=== PATIENT | female | born 1955 | race Caucasian/White ===

== ENCOUNTER 2016-09-06 16:24 | Inpatient (IN) | payer OTHER, MEDICAID ==
[~2016-09-06] VITALS: Ht 157.5 cm; Wt 54.4 kg
[2016-09-06 16:31] VITALS: BP 100/49
--- NOTE | 2016-09-06 16:35 | NUR ---
PT BIBA FOR EVALUATION OF ABDOMINAL PAIN X2 YRS. HX GALLSTONES, RA, BIPOLAR DISORDER. DENIES N/V/D; SKIN IS PINK/WARM/DRY; AAOX4 WITH EVEN AND STEADY GAIT; LUNGS CLEAR BL; HR EVEN AND REGULAR; PT DENIES ANY FEVER, CP, SOB, OR COUGH AT THIS TIME; PATIENT STATES PAIN OF 10/10 AT THIS TIME; VSS; PATIENT POSITIONED FOR COMFORT; HOB ELEVATED; BEDRAILS UP X2; BED DOWN. ER MD MADE AWARE OF PT STATUS.
[2016-09-06] MEDS ORDERED: KETOROLAC 30 MG/ML VIAL IVP ONE (16:40)
[2016-09-06] MEDS ORDERED: MORPHINE SULFATE 4 MG/ML SYR IVP ONE (18:40)
--- NOTE | 2016-09-06 19:11 | NUR ---
REPORT GIVEN TO JUAN ALBERTO MCNEAL FOR TRANSFER OF CARE
[2016-09-06] MEDS ORDERED: NACL 0.9% 1,000 ML IV SCH (20:47)
[2016-09-06] MEDS ORDERED: clonazePAM 0.5 MG TAB PO ONE (20:50)
[2016-09-06] MEDS ORDERED: ONDANSETRON 4 MG/2 ML VIAL IVP ONE (20:50)
[2016-09-06] MEDS ORDERED: FAMOTIDINE 20 MG/2 ML VIAL IVP ONE (20:50)
[2016-09-06] MEDS ORDERED: DOCUSATE SODIUM 100 MG GELCAP PO PRN (20:55)
[2016-09-06] MEDS ORDERED: ONDANSETRON 4 MG/2 ML VIAL IVP PRN (20:55)
[2016-09-06] MEDS ORDERED: NACL 0.9% 1,000 ML IV ONE (20:55)
[2016-09-06] MEDS ORDERED: ACETAMINOPHEN 325 MG TAB PO PRN (20:55)
[2016-09-06] MEDS ORDERED: HYDROmorphone 1 MG/ML AMP IVP PRN (21:00)
--- NOTE | 2016-09-06 21:11 | NUR ---
Patient will be admitted to care of DR. GRIFFITHS. Admited to TELE. Will go to room 120B. Belongings list completed. Report to FABIAN AVENDANO.
[2016-09-06] MEDS ORDERED: NEURONTIN300 MG PO (21:12)
[2016-09-06] MEDS ORDERED: PAXIL20 MG PO (21:13)
[2016-09-06] MEDS ORDERED: PROTONIX40 MG PO (21:14)
[2016-09-06] MEDS ORDERED: TEMAZEPAM15 MG PO (21:16)
[2016-09-06] MEDS ORDERED: COLACE100 M1 PO (21:17)
[2016-09-06] MEDS ORDERED: RISPERDAL0.25 MG PO (21:19)
[2016-09-06] MEDS ORDERED: DELTASONE10 MG PO (21:20)
[2016-09-06] MEDS ORDERED: BENTYL10 MG PO (21:22)
[2016-09-06 21:30] VITALS: BP 114/49
--- NOTE | 2016-09-06 21:30 | NUR ---
PATIENT TRANSFERRED FROM ER VIA GURNEY. PATIENT ABLE TO AMBULATE TO BED WITH ASSISTANCE, WEAK GAIT. NO RESPIRATORY DISTRESS, SOB, OR DISCOMFORT. PATIENT IS A 60-YEAR-OLD, FEMALE, DIAGNOSIS: ACUTE CHOLECYSTITIS. INITIAL ASSESSMENT AND BODY CHECK DONE. PATIENT IS AOX4, SKIN IS INTACT, IV ACCESS TO LEFT HAND 22G, PATENT. ABDOMINAL HERNIA NOTED. DISCUSSED PLAN OF CARE, MEDICATION REGIMENT, AND PAIN MANAGEMENT WITH PATIENT. PATIENT VERBALIZED UNDERSTANDING. PLACED PATIENT ON SAFETY PRECAUTIONS. CALL LIGHT LEFT WITHIN REACH, WILL CONTINUE TO MONITOR.
--- NOTE | 2016-09-06 21:32 | NUR ---
Pt report given to FABIAN AVENDANO. Transfer of care at this time.
[2016-09-06] MEDS ORDERED: INFLUENZA VIRUS VACCINE QUAD 0.5 ML SYR IMVAC PRN (23:40)
[2016-09-06] MEDS ORDERED: PNEUMOCOCCAL VACCINE 23 MCG/0.5 ML VIAL IMVAC PRN (23:40)
[2016-09-07] VITALS: BP 96/43
--- NOTE | 2016-09-07 00:46 | NUR ---
PATIENT IN BED, SLEEPING. NO RESPIRATORY DISTRESS, SOB, OR DISCOMFORT. CALL LIGHT LEFT WITHIN REACH, WILL CONTINUE TO MONITOR.
--- NOTE | 2016-09-07 03:14 | NUR ---
PATIENT ASLEEP. NO RESPIRATORY DISTRESS, SOB, OR DISCOMFORT. CALL LIGHT LEFT WITHIN REACH, WILL CONTINUE TO MONITOR.
[2016-09-07 04:00] VITALS: BP 87/44
--- NOTE | 2016-09-07 06:03 | NUR ---
PATIENT SLEEPING. NO RESPIRATORY DISTRESS, SOB, OR DISCOMFORT. CALL LIGHT LEFT WITHIN REACH, WILL CONTINUE TO MONITOR.
--- NOTE | 2016-09-07 07:31 | NUR ---
REPORT GIVEN TO DAY NURSE, ANNA, FOR CONTINUITY OF CARE. PATIENT RESTING IN BED, STABLE. NO RESPIRATORY DISTRESS, SOB, OR DISCOMFORT. ALL NEEDS ATTENDED TO DURING SHIFT, CALL LIGHT LEFT WITHIN REACH.
[2016-09-07 08:00] VITALS: BP 100/48
--- NOTE | 2016-09-07 08:00 | NUR ---
RECEIVED REPORT FROM ANNA AVENDANO FOR CONTINUITY OF CARE. PATIENT AWAKE A/OX4 NO S/SOF RESP DISTRESS NOTED. COMPLAIN OF BACK PAIN WILL MEDICATE. GENERALIZE WEAKNESS NOTED BILATERAL HANDS DEFORMED. SAFETY ROBERT BEEN ENFORCED. IV SITE RIGHT HAND GAUGE 22 INTACT AND PATENT . IVF INFUSING WELL. PLAN OF CARE DISCUSSED WITH THE PATIENT VITALS STABLE WILL CONTINUE TO MONITOR.
--- NOTE | 2016-09-07 08:14 | NUR ---
PATIENT HAS BEEN SCREENED AND CATEGORIZED MODERATE NUTRITION RISK. PATIENT WILL BE SEEN WITHIN 3-5 DAYS OF ADMISSION. 09/09/16-09/11/[address]
[2016-09-07] MEDS ORDERED: PANTOPRAZOLE 40 MG TABEC PO SCH (09:00)
[2016-09-07] MEDS ORDERED: DICYCLOMINE 10 MG CAP PO SCH (09:00)
[2016-09-07] MEDS ORDERED: risperiDONE 1 MG TAB PO SCH (09:00)
--- NOTE | 2016-09-07 09:30 | NUR ---
DUE MEDS GIVEN TOLERATED WELL, COMPLAIN OF BACK PAIN MEDICATED WITH NORCO ONE TAB. ASSIST PATIENT TO BATHROOM MORNING CARE GIVEN.
[2016-09-07] MEDS: GABAPENTIN 300 MG CAP PO SCH (09:59)
[2016-09-07] MEDS: predniSONE 10 MG TAB PO SCH (09:59)
[2016-09-07] MEDS: PANTOPRAZOLE 40 MG TABEC PO SCH (10:00)
[2016-09-07] MEDS: HYDROcodone/APAP 5/325 MG 1 TAB TAB PO PRN (10:01)
[2016-09-07] MEDS: PARoxetine 20 MG TAB PO SCH (10:01)
[2016-09-07] MEDS ORDERED: MORPHINE SULFATE 4 MG/ML SYR IVP PRN (11:10)
[2016-09-07] MEDS: NACL 0.9% 1,000 ML IV SCH (11:10)
[2016-09-07 12:00] VITALS: BP 107/58
--- NOTE | 2016-09-07 12:20 | NUR ---
CM NOTE INITIAL REVIEW SENT TO [employer] FAX# [phone] PH# TREVOR [phone], CHERELLE [phone]
--- NOTE | 2016-09-07 12:24 | NUR ---
RELAXED EATING LUNCH , DENIES ANY PAIN VITALS STABLE AT THIS TIME.
--- NOTE | 2016-09-07 13:00 | NUR ---
DR BHATIA VISITED PATIENT , NEW ORDER HIDA SCAN TO BE DONE STAT. ORDER CARRIED OUT
[2016-09-07 16:00] VITALS: BP 106/56
--- NOTE | 2016-09-07 16:30 | NUR ---
RESTING WELL DENIES ANY PAIN VITALS STABLE AT THIS TIME.
--- NOTE | 2016-09-07 18:07 | NUR ---
PATIENT LEFT FOR HIDA SCAN , STABLE CONDITION
--- NOTE | 2016-09-07 19:26 | NUR ---
RECD. RESTING IN BED, AWAKE, A/OX4, WITH OCCASIONAL FORGETFULNESS. IV OF NS AT 75 ML/HR INFUSING, RIGHT WRIST G 22. WITH ARTHRITIS ON BOTH HANDS, FINGERS DEFORMED. USES THE BEDSIDE COMMODE. SAFETY MEASURES ENFORCED. PLAN OF CARE FOR THE SHIFT DISCUSSED. VERBALIZED UNDERSTANDING. DENIES PAIN 0/10.
[2016-09-07 20:00] VITALS: BP 92/54
[2016-09-07] MEDS: DOCUSATE SODIUM 100 MG GELCAP PO SCH (20:53)
[2016-09-07] MEDS: risperiDONE 1 MG TAB PO SCH (20:53)
[2016-09-07] MEDS: TEMAZEPAM 15 MG CAP PO SCH (20:53)
[2016-09-07] MEDS ORDERED: DOCUSATE SODIUM 100 MG GELCAP PO SCH (21:00)
--- NOTE | 2016-09-07 21:00 | NUR ---
Patient's Plan of Care was discussed and reviewed with CIVIL LAWYER: RICHMOND ESCALONA
[2016-09-07] MEDS ORDERED: clonazePAM 0.5 MG TAB PO SCH (21:45)
[2016-09-07] MEDS ORDERED: DICYCLOMINE 20 MG/2 ML VIAL IM SCH (21:45)
--- NOTE | 2016-09-07 22:00 | NUR ---
INFORMED DR. BHATIA REGARDING RESULT OF HIDA SCAN. NO EVIDENCE OF CYSTIC OR COMMON BILE DUCT OBSTRUCTION. PATIENT MAY GO HOME TOMORROW AND FOLLOW UP WITH PRIMARY CARE PHYSICIAN. CHARGE NURSE AWARE.
[2016-09-08] VITALS: BP 89/53
[2016-09-08] MEDS: NACL 0.9% 1,000 ML IV SCH ×3 (00:30→14:24)
[2016-09-08] MEDS ORDERED: NACL 0.9% 500 ML IV ONE (01:40)
--- NOTE | 2016-09-08 01:40 | NUR ---
BP - 83/37, RIGHT ARM, 80/40, LEFT ARM, ADMINISTERED NS 500 ML BOLUS ORDERED.
--- NOTE | 2016-09-08 02:15 | NUR ---
BED ALARMED, WENT OUT OF BED WITHOUT CALLING NURSE FOR HELP.INSTRUCTED TO CALL NURSE`FOR ASSISTANCE BEFORE GETTING OUT OF BED TO PREVENT FALL. VERBALIZED UNDERSTANDING.
--- NOTE | 2016-09-08 03:45 | NUR ---
IV INFILTRATED, NEW IV LINE INSERTED BY RESOURCE NURSE JERAD AT THE RIGHT WRIST G 24.
--- NOTE | 2016-09-08 03:55 | NUR ---
BP - 115/44, HR - 50, RESTING COMFORTABLY IN BED.
[2016-09-08 04:00] VITALS: BP 115/44
--- NOTE | 2016-09-08 04:00 | NUR ---
WENT TO BSC TO VOID, BACK TO BED AFTER VOIDING SAFETY MAINTAINED.
--- NOTE | 2016-09-08 07:15 | NUR ---
CONDITION REMAIN STABLE. ENDORSED TO JUAN ALBERTO ORTEGA FOR MONITORING OF BP AND CONTINUITY OF CARE.
--- NOTE | 2016-09-08 07:16 | NUR ---
RECEIVED PT FROM MOR FRAGOSO ASLEEP BUT EASILY AROUSABLE, ON BED, AAOX4, WITH NO S/S OF RESPIRATORY DISTRESS OR DISCOMFORT. WITH IV ACCESS ON LEFT WRIST 24G INFUSING FLUIDS WELL. SKIN IS INTACT. DISCUSSED PLAN OF CARE, PT VERBALIZED UNDERSTANDING. SAFETY PRECAUTIONS ENFORCED. WITH COMMODE AT BEDISED AND BED ALARM ON. CALL LIGHT WITHIN REACH, WILL CONTINUE TO MONITOR.
[2016-09-08 08:00] VITALS: BP 113/65
[2016-09-08] MEDS: DOCUSATE SODIUM 100 MG GELCAP PO SCH ×2 (08:33→21:34)
[2016-09-08] MEDS: GABAPENTIN 300 MG CAP PO SCH (08:34)
[2016-09-08] MEDS: PARoxetine 20 MG TAB PO SCH (08:34)
[2016-09-08] MEDS: predniSONE 10 MG TAB PO SCH (08:34)
[2016-09-08] MEDS: PANTOPRAZOLE 40 MG TABEC PO SCH (08:34)
[2016-09-08] MEDS: DICYCLOMINE 10 MG CAP PO SCH ×2 (08:34→21:35)
--- NOTE | 2016-09-08 08:36 | NUR ---
DUE MEDS GIVEN, PT TOLERATED WELL. KEPT CLEAN AND DRY, WILL CONTINUE TO MONITOR.
--- NOTE | 2016-09-08 10:28 | NUR ---
PT IN BED AWAKE RESTING. KEPT CLEAN AND DRY. INFECTION MRSA HANDOUT GIVEN. ALL NEEDS MET AT THIS TIME. WILL CONTINUE TO MONITOR.
[2016-09-08] MEDS: CHLORHEXADINE GLUC 2% CLOTH TP SCH (10:36)
[2016-09-08] MEDS: MUPIROCIN 2% OINT 22 GM TUBE TP SCH (10:36)
--- NOTE | 2016-09-08 12:28 | NUR ---
PT LYING ON BED TALKING TO HER PHONE. KEPT CLEAN AND DRY. AL NEEDS MET AT THIS TIME. CALL LIGHT WITHIN REACH, WILL CONTINUE TO MONITOR.
--- NOTE | 2016-09-08 14:03 | NUR ---
CM NOTE CONCURRENT REVIEW SENT TO [employer] FAX# [phone] PH# CHERELLE [phone], THO MURRAY [phone]
[2016-09-08] MEDS: HYDROcodone/APAP 5/325 MG 1 TAB TAB PO PRN (15:01)
--- NOTE | 2016-09-08 15:09 | NUR ---
PT AWAKE AND LYING ON BED WITH RELATIVES AT BEDSIDE. ALL NEEDS MET AT THIS TIME. CALL LIGHT WITHIN REACH, WILL CONTINUE TO MONITOR.
[2016-09-08 15:27] VITALS: BP 107/53
[2016-09-08] MEDS: CALCIUM CARBONATE 500 MG TAB PO SCH (16:15)
--- NOTE | 2016-09-08 16:48 | NUR ---
DINNER SERVED, PT ON FULL LIQUID DIET. INFORMED PT TO BE ON NPO AFTER MIDNIGHT. PT VERBALIZED UNDERSTANDING.
--- NOTE | 2016-09-08 19:38 | NUR ---
ENDORSED PT TO MOR FRAGOSO IN STABLE CONDITION FOR CONTINUITY OF CARE
--- NOTE | 2016-09-08 19:39 | NUR ---
RECD. RESTING IN BED, AWAKE, A/OX4. RESPIRATION EVEN AND UNLABORED. IV OF NS AT 90 ML/HR INFUSING, LEFT WRIST G 24. USES BSC. SAFETY MEASURES ENFORCED. PLAN OF CARE FOR THE SHIFT DISCUSSED. INSTRUCTED TO CALL NURSE BEFORE GETTING OUT OF BED FOR ASSISTANCE. VERBALIZED UNDERSTANDING. STATED WANTS TO HAVE SURGERY TO PREVENT EXPERIENCES OF PAIN AT HOME. AWAITING FOR DR. DUPONT TO COME. DENIES PAIN AT THIS TIME 0.
--- NOTE | 2016-09-08 20:00 | NUR ---
Patient's Plan of Care was discussed and reviewed with MANAGER MEDICARE: RICHMOND ESCALONA
--- NOTE | 2016-09-08 20:25 | NUR ---
DR. DUPONT CAME AND SPOKE WITH PATIENT. ORDERED LAPAROSCOPIC POSSIBLE OPEN CHOLECYSTECTOMY.
[2016-09-08] MEDS: TEMAZEPAM 15 MG CAP PO SCH (21:35)
[2016-09-08] MEDS: risperiDONE 1 MG TAB PO SCH (21:35)
--- NOTE | 2016-09-08 21:35 | NUR ---
DUE PO MEDICATIONS GIVEN.
[2016-09-08 23:27] VITALS: BP 110/59
--- NOTE | 2016-09-09 | NUR ---
OUT OF BED WITHOUT CALLING NURSE TO GO TO BSC. INSTRUCTED TO ALWAYS CALL FOR ASSISTANCE. VERBALIZED UNDERSTANDING. REMINDED NPO PAST MIDNIGHT FOR SURGERY TODAY.
[2016-09-09] MEDS: NACL 0.9% 1,000 ML IV SCH ×4 (00:36→22:50)
--- NOTE | 2016-09-09 04:00 | NUR ---
ASSISTED BELLA BSC TO VOID, SAFETY MAINTAINED.
--- NOTE | 2016-09-09 07:20 | NUR ---
CONDITION REMAIN STABLE. ENDORSED TO JUAN ALBERTO FERNÁNDEZ FOR CONTINUITY OF CARE.
[2016-09-09] MEDS ORDERED: BUPIVACAINE-MPF 0.25% 30 ML VIAL INJ ONE (07:21)
--- NOTE | 2016-09-09 07:21 | NUR ---
RECEIVED REPORT FROM NIGHT DELICATESSEN SLICER. PT RESTING IN BED. NO S/S OF ACUTE DISTRESS. AAOX4. PT DENIES PAIN. IV SITE PATENT AND INTACT. CALL LIGHT WITHIN REACH. SAFETY MEASURES ENSURED. WILL CONTINUE TO MONITOR.
--- NOTE | 2016-09-09 07:41 | NUR ---
PT TAKEN OFF UNIT TO OR. NO S/S OF ACUTE DISTRESS. PT DENIES PAIN. PT REMAINS IN STABLE CONDITION.
[2016-09-09] MEDS ORDERED: ceFAZolin 1,000 MG VIAL ONE (07:58)
[2016-09-09] MEDS ORDERED: PROPOFOL 200 MG/20 ML VIAL IV ONE (08:00)
[2016-09-09] MEDS ORDERED: ONDANSETRON 4 MG/2 ML VIAL IVP ONE (08:00)
[2016-09-09] MEDS ORDERED: SUCCINYLCHOLINE CHLORIDE 200 MG/10 ML VIAL IV ONE (08:00)
[2016-09-09] MEDS ORDERED: PHENYLEPHRINE 10 MG/ML VIAL IV ONE (08:00)
[2016-09-09] MEDS: PANTOPRAZOLE 40 MG TABEC PO SCH (08:00)
[2016-09-09] MEDS ORDERED: GLYCOPYRROLATE 0.2 MG/ML VIAL IV ONE (08:00)
[2016-09-09] MEDS ORDERED: DESFLURANE 240 ML BTL INH ONE (08:00)
[2016-09-09] MEDS ORDERED: ROCURONIUM 50 MG/5 ML VIAL IV ONE (08:00)
[2016-09-09] MEDS: CALCIUM CARBONATE 500 MG TAB PO SCH ×2 (08:00→16:58)
[2016-09-09] MEDS ORDERED: DEXAMETHASONE 4 MG/ML VIAL IVP ONE (08:00)
[2016-09-09] MEDS: DICYCLOMINE 10 MG CAP PO SCH ×2 (08:12→21:33)
[2016-09-09] MEDS: DOCUSATE SODIUM 100 MG GELCAP PO SCH ×2 (08:12→21:32)
[2016-09-09] MEDS ORDERED: MIDAZOLAM 2 MG/2 ML VIAL ONE (08:13)
[2016-09-09] MEDS ORDERED: fentaNYL 0.05 MG/ML VIAL ONE (08:13)
[2016-09-09] MEDS: GABAPENTIN 300 MG CAP PO SCH (08:13)
[2016-09-09] MEDS: predniSONE 10 MG TAB PO SCH (08:13)
[2016-09-09] MEDS ORDERED: MEPERIDINE 50 MG/ML SYR ONE (08:13)
[2016-09-09] MEDS: PARoxetine 20 MG TAB PO SCH (08:13)
[2016-09-09] MEDS ORDERED: METOCLOPRAMIDE 10 MG/2 ML INJ VIAL IVP PRN (09:15)
[2016-09-09] MEDS ORDERED: MEPERIDINE 25 MG/ML SYR IVP PRN ×2 (09:15)
[2016-09-09] MEDS ORDERED: MIDAZOLAM 2 MG/2 ML VIAL IVP SCH (09:15)
--- NOTE | 2016-09-09 09:38 | NUR ---
CM NOTE CONCURRENT REVIEW SENT TO [employer] FAX# [phone] PH# CHERELLE [phone], THO MURRAY [phone]
[2016-09-09] MEDS: MUPIROCIN 2% OINT 22 GM TUBE TP SCH (10:00)
[2016-09-09] MEDS: CHLORHEXADINE GLUC 2% CLOTH TP SCH (10:00)
[2016-09-09] MEDS ORDERED: MUPIROCIN 2% OINT 22 GM TUBE TP SCH (10:00)
[2016-09-09 10:52] VITALS: BP 117/55
--- NOTE | 2016-09-09 10:52 | NUR ---
PT BACK ON UNIT. NO S/S OF ACUTE DISTRESS. PT DROWSY. PT DENIES PAIN. IV SITE PATENT AND INTACT. VSS. CALL LIGHT WITHIN REACH. SAFETY MEASURES ENSURED. WILL CONTINUE TO MONITOR.
[2016-09-09] MEDS: PIPER/TAZO 3.375GM/D5W PREMIX 50 ML IV SCH ×2 (12:58→16:59)
--- NOTE | 2016-09-09 13:33 | NUR ---
PT RESTING IN BED. NO S/S OF ACUTE DISTRESS. 5 STERI STRIPS NOTED TO ABDOMEN. PT DENIES PAIN. CALL LIGHT WITHIN REACH. SAFETY MEASURES ENSURED. WILL CONTINUE TO MONITOR.
[2016-09-09] MEDS: metroNIDAZOLE 500 MG/NS PREMIX 100 ML IV SCH ×2 (13:41→21:33)
[2016-09-09] MEDS: HYDROcodone/APAP 5/325 MG 1 TAB TAB PO PRN (14:07)
--- NOTE | 2016-09-09 15:26 | NUR ---
PT RESTING IN BED. NO S/S OF ACUTE DISTRESS. PT DENIES PAIN. CALL LIGHT WITHIN REACH. SAFETY MEASURES ENSURED. WILL CONTINUE TO MONITOR.
[2016-09-09 16:00] VITALS: BP 119/60
--- NOTE | 2016-09-09 16:07 | NUR ---
PT RESTING IN BED. NO S/S OF ACUTE DISTRESS. CALL LIGHT WITHIN REACH. SAFETY MEASURES ENSURED. WILL CONTINUE TO MONITOR.
[2016-09-09] MEDS ORDERED: HYDROmorphone 1 MG/ML AMP IVP PRN (16:25)
--- NOTE | 2016-09-09 16:45 | NUR ---
NOTIFIED DR. HEAD ABOUT PT'S PAIN COMING BACK DESPITE NORCO 5. STATED TO GIVE NORCO 10 NOW.
[2016-09-09] MEDS: HYDROcodone/APAP 10/325 MG 1 TAB TAB PO PRN (16:58)
--- NOTE | 2016-09-09 19:28 | NUR ---
ENDORSED PLAN OF CARE TO NIGHT RN. PT REMAINS IN STABLE CONDITION.
--- NOTE | 2016-09-09 19:35 | NUR ---
RECEIVED REPORT FROM DAY NURSEJOLENE. PATIENT RESTING IN BED, WATCHING TELEVISION. NO RESPIRATORY DISTRESS, SOB, OR DISCOMFORT. INITIAL ASSESSMENT AND BODY CHECK DONE. PATIENT IS AOX4, IV ACCESS TO LEFT WRIST 24G AND RIGHT UPPER ARM 22G, BOTH PORTS PATENT. PATIENT HAS 5 ABD INCISIONS STERI STRIPS IN PLACE; NO DRAINAGE NOTED. S/P LAP GEGE (09/09/16). PATIENT DENIES ANY PAIN AT THIS TIME. DISCUSSED PLAN OF CARE, MEDICATION REGIMENT, AND PAIN MANAGEMENT WITH PATIENT. PATIENT VERBALIZED UNDERSTANDING. PLACED PATIENT ON SAFETY/FALL PRECAUTIONS. CALL LIGHT LEFT WITHIN REACH, WILL CONTINUE TO MONITOR.
[2016-09-09] MEDS: risperiDONE 1 MG TAB PO SCH (21:33)
[2016-09-09] MEDS: TEMAZEPAM 15 MG CAP PO SCH (21:33)
--- NOTE | 2016-09-09 21:56 | NUR ---
PATIENT REQUESTING ADDITIONAL BLANKET. PROVIDE TO PATIENT. PATIENT RESTING IN BED. NO RESPIRATORY DISTRESS, SOB, OR DISCOMFORT. CALL LIGHT LEFT WITHIN REACH, WILL CONTINUE TO MONITOR.
[2016-09-10] VITALS: BP 101/60
[2016-09-10] MEDS: PIPER/TAZO 3.375GM/D5W PREMIX 50 ML IV SCH ×4 (00:23→17:02)
--- NOTE | 2016-09-10 00:50 | NUR ---
PATIENT IN BED, SLEEPING. NO RESPIRATORY DISTRESS, SOB, OR DISCOMFORT. CALL LIGHT LEFT WITHIN REACH, WILL CONTINUE TO MONITOR.
[2016-09-10] MEDS: HYDROcodone/APAP 10/325 MG 1 TAB TAB PO PRN ×3 (02:39→17:02)
--- NOTE | 2016-09-10 03:06 | NUR ---
PATIENT ASLEEP. NO RESPIRATORY DISTRESS, SOB, OR DISCOMFORT. CALL LIGHT LEFT WITHIN REACH, WILL CONTINUE TO MONITOR.
[2016-09-10] MEDS: metroNIDAZOLE 500 MG/NS PREMIX 100 ML IV SCH ×3 (05:30→21:11)
--- NOTE | 2016-09-10 06:04 | NUR ---
PATIENT SLEEPING. NO RESPIRATORY DISTRESS, SOB, OR DISCOMFORT. CALL LIGHT LEFT WITHIN REACH, WILL CONTINUE TO MONITOR.
--- NOTE | 2016-09-10 07:26 | NUR ---
REPORT GIVEN TO DAY NURSE, DARIO. PATIENT RESTING IN BED, STABLE. NO RESPIRATORY DISTRESS, SOB, OR DISCOMFORT. ALL NEEDS ATTENDED TO DURING SHIFT, CALL LIGHT LEFT WITHIN REACH.
--- NOTE | 2016-09-10 07:27 | NUR ---
PT ALERT AND ORIENTED X3, BREATHING EVENLY AND UNLABORED, NO SIGNS OF ACUTE DISTRESS. SKIN IS WARM AND DRY. NO SIGNS OF ANY BOWEL/BLADDER DISCOMFORT. DENIES OF ANY PAIN OR DISCOMFORT AT THIS TIME. S/P LAP GEGE, DRESSING INTACT AND DRY ON ABDOMINAL AREA. ALL NEEDS ATTENDED, SAFETY PRECAUTIONS MAINTAINED. CALL LIGHT WITHIN REACH.
[2016-09-10 08:00] VITALS: BP 93/42
[2016-09-10] MEDS: CALCIUM CARBONATE 500 MG TAB PO SCH ×3 (08:00→16:04)
[2016-09-10] MEDS: predniSONE 10 MG TAB PO SCH (08:47)
[2016-09-10] MEDS: GABAPENTIN 300 MG CAP PO SCH (08:47)
[2016-09-10] MEDS: DOCUSATE SODIUM 100 MG GELCAP PO SCH ×2 (08:47→21:10)
[2016-09-10] MEDS: PANTOPRAZOLE 40 MG TABEC PO SCH (08:48)
[2016-09-10] MEDS: PARoxetine 20 MG TAB PO SCH (08:48)
[2016-09-10] MEDS: DICYCLOMINE 10 MG CAP PO SCH ×2 (08:48→21:11)
[2016-09-10] MEDS: MUPIROCIN 2% OINT 22 GM TUBE TP SCH (09:39)
[2016-09-10] MEDS: CHLORHEXADINE GLUC 2% CLOTH TP SCH (09:39)
[2016-09-10] MEDS ORDERED: HYDROmorphone PFS 2 MG/ML SYR ONE (09:52)
[2016-09-10] MEDS ORDERED: fentaNYL 0.05 MG/ML VIAL ONE (09:52)
[2016-09-10] MEDS: NACL 0.9% 1,000 ML IV SCH ×2 (09:57→21:12)
--- NOTE | 2016-09-10 14:10 | NUR ---
NEW MED AND LAB ORDERS RECEIVED FROM DR. REDMAN, NOTED AND CARRIED OUT.
[2016-09-10] MEDS ORDERED: POTASSIUM CHLORIDE 40 MEQ, LIDOCAINE 1% 25 MG, MAGNESIUM SULFATE 50% 2,000 MG in NACL 0... IV ONE (15:40)
[2016-09-10 16:00] VITALS: BP 105/48
--- NOTE | 2016-09-10 19:21 | NUR ---
PT ALERT AND RESPONSIVE, NO SIGNS OF ACUTE DISTRESS. ENDORSED TO ONCOMING LIFE GUARD NURSE FOR CONTINUITY OF CARE.
--- NOTE | 2016-09-10 19:30 | NUR ---
RECEIVED REPORT FROM DAY RN AT BEDSIDE, PATIENT IS ALERT AND ORIENTED X4, ON ROOM AIR, NO SOB OR SIGN OF DISTRESS AT THIS TIME. ON CONTACT PRECAUTIONS, SIGNS POSTED, IV TO LFA PATENT AND INTACT, ASYMPTOMATIC. PATIENT IS S/P LAP GEGE ON 09/09/16 WITH X 5 ABDOMINAL INCISIONS NOTED, DENIES PAIN AT THIS TIME, SAFETY MEASURES CHECKED, DISCUSSED PLAN OF CARE WITH PATIENT, PATIENT VERBALIZED UNDERSTANDING, CALL LIGHT WITHIN REACH. WILL CONTINUE TO MONITOR.
[2016-09-10] MEDS: TEMAZEPAM 15 MG CAP PO SCH (21:10)
[2016-09-10] MEDS: risperiDONE 1 MG TAB PO SCH (21:11)
--- NOTE | 2016-09-10 21:15 | NUR ---
PM MEDS ADMINISTERED, PATIENT TOLERATED WELL, ASSISTED PATIENT UP TO RESTROOM, CALL LIGHT WITHIN REACH. WILL CONTINUE TO MONITOR
--- NOTE | 2016-09-10 22:50 | NUR ---
ASSISTED PATIENT TO BEDSIDE COMMODE NO SIGN OF DISTRESS, CALL LIGHT WITHIN REACH. WILL CONTINUE TO MONITOR.
--- NOTE | 2016-09-10 23:05 | NUR ---
PATIENT SLEEPING, NO SOB OR SIGN OF DISTRESS AT THIS TIME, CALL LIGHT WITHIN REACH. WILL CONTINUE TO MONITOR.
[2016-09-11] VITALS: BP 93/46
--- NOTE | 2016-09-11 00:20 | NUR ---
PATIENT SLEEPING, EASILY AROUSABLE, VITAL SIGN STABLE, CALL LIGHT WITHIN REACH. WILL CONTINUE TO MONITOR.
[2016-09-11] MEDS: PIPER/TAZO 3.375GM/D5W PREMIX 50 ML IV SCH ×3 (00:34→11:08)
[2016-09-11] MEDS: HYDROcodone/APAP 10/325 MG 1 TAB TAB PO PRN ×3 (00:35→10:14)
--- NOTE | 2016-09-11 02:50 | NUR ---
PATIENT SLEEPING, NO SOB OR SIGN OF DISTRESS AT THIS TIME, CALL LIGHT WITHIN REACH. WILL CONTINUE TO MONITOR.
[2016-09-11] MEDS: metroNIDAZOLE 500 MG/NS PREMIX 100 ML IV SCH ×2 (04:38→12:24)
--- NOTE | 2016-09-11 04:50 | NUR ---
PATIENT C/O ABDOMINAL PAIN ADMINISTERED NORCO PER MD ORDER, CALL LIGHT WITHIN REACH. WILL CONTINUE TO MONITOR.
--- NOTE | 2016-09-11 05:40 | NUR ---
PATIENT SLEEPING, NO SOB OR SIGN OF DISTRESS, CALL LIGHT WITHIN REACH. WILL CONTINUE TO MONITOR.
--- NOTE | 2016-09-11 07:23 | NUR ---
ENDORSED PATIENT TO DAY RN AT BEDSIDE, PATIENT IN STABLE CONDITION.
--- NOTE | 2016-09-11 07:24 | NUR ---
PT ALERT AND ORIENTED X4, BREATHING EVENLY AND UNLABORED, NO SIGNS OF ACUTE DISTRESS. SKIN IS WARM AND DRY. NO SIGNS OF ANY BOWEL/BLADDER DISCOMFORT. DENIES OF ANY PAIN OR DISCOMFORT AT THIS TIME. DRESSING INTACT AND DRY ON ABDOMINAL AREA, S/P LAP GEGE. ALL NEEDS ATTENDED, SAFETY PRECAUTIONS MAINTAINED. CALL LIGHT WITHIN REACH.
[2016-09-11 08:00] VITALS: BP 109/56
[2016-09-11] MEDS: CALCIUM CARBONATE 500 MG TAB PO SCH (08:00)
[2016-09-11] MEDS: NACL 0.9% 1,000 ML IV SCH (08:11)
[2016-09-11] MEDS: PANTOPRAZOLE 40 MG TABEC PO SCH (08:45)
[2016-09-11] MEDS: DOCUSATE SODIUM 100 MG GELCAP PO SCH (08:46)
[2016-09-11] MEDS: PARoxetine 20 MG TAB PO SCH (08:46)
[2016-09-11] MEDS: GABAPENTIN 300 MG CAP PO SCH (08:46)
[2016-09-11] MEDS: predniSONE 10 MG TAB PO SCH (08:46)
[2016-09-11] MEDS: DICYCLOMINE 10 MG CAP PO SCH (08:47)
[2016-09-11] MEDS: CHLORHEXADINE GLUC 2% CLOTH TP SCH (08:47)
[2016-09-11] MEDS: MUPIROCIN 2% OINT 22 GM TUBE TP SCH (08:47)
[2016-09-11] MEDS ORDERED: POTASSIUM CHLORIDE 10 MEQ TABER PO SCH ×2 (09:00→10:30)
--- NOTE | 2016-09-11 09:03 | NUR ---
NEW MED ORDERS RECEIVED FROM DR. REDMAN. NOTED AND CARRIED OUT.
[2016-09-11] MEDS ORDERED: NORCO 325 MG-7.1 TAB PO (10:08)
[2016-09-11] MEDS ORDERED: COLACE100 M1 PO (10:12)
[2016-09-11] MEDS ORDERED: MAG SULF 2000 MG/WATER PREMIX 50 ML IV ONE (10:30)
[2016-09-11] MEDS ORDERED: FLAGYL250 MG PO (10:32)
[2016-09-11] MEDS ORDERED: LEVAQUIN750 MG PO (10:32)
--- NOTE | 2016-09-11 10:56 | NUR ---
NOTED ANOTHER KDUR ORDER 40 MEQ PO, GIVEN [address] CORBETT AWARE, VERBALIZED TO NOT ADMINISTER. CONTINUE TO MONITOR.
--- NOTE | 2016-09-11 14:45 | NUR ---
PT ALERT AND ORIENTED, NO SIGNS OF ACUTE DISTRESS. MAY D/C HOME ORDERED. EDUCATED TO FOLLOW UP WITH PCP IN 1 WEEK AND POST OP CARE, WOUND CARE SUPPLIES GIVEN. REVIEWED DISCHARGE PRESCRIPTIONS INDICATIONS AND SIDE EFFECTS. PT VERBALIZED UNDERSTANDING. IV LINE AND WRIST BANDS REMOVED. PERSONAL BELONGINGS WITH PT UPON DISCHARGE. WHEELED TO FRONT LOBBY WITH CAREGIVER AND TRANSPORTED HOME BY PRIVATE AUTO
== END 2016-09-11 14:45 | disposition home or self-care (01) | DRG 417 ==
LOC: MED 16:24 → MTU 20:59
PROVIDERS: ADMIT Family Medicine; ATTEND Family Medicine
PROC: 0FT44ZZ Resection of Gallbladder, Percutaneous Endoscopic Approach (ICD-10-PCS; principal; 2016-09-09 08:00)
DX: K80.62 Calculus of gallbladder and bile duct with acute cholecystitis without obstruction (principal); E43 Unspecified severe protein-calorie malnutrition; E78.5 Hyperlipidemia, unspecified; M06.9 Rheumatoid arthritis, unspecified; F31.9 Bipolar disorder, unspecified; E83.51 Hypocalcemia; E87.8 Other disorders of electrolyte and fluid balance, not elsewhere classified; R31.9 Hematuria, unspecified; E83.42 Hypomagnesemia; R74.0 Nonspecific elevation of levels of transaminase and lactic acid dehydrogenase [LDH]; D64.9 Anemia, unspecified; Z87.891 Personal history of nicotine dependence; Z93.3 Colostomy status; Z88.2 Allergy status to sulfonamides; Z88.8 Allergy status to other drugs, medicaments and biological substances; Z68.21 Body mass index [BMI] 21.0-21.9, adult

== ENCOUNTER 2016-09-21 15:25 | Observation (INO) | payer OTHER, MEDICAID ==
[~2016-09-21] VITALS: Ht 157.5 cm; Wt 53.1 kg
[~2016-09-21 15:25] MED LIST: BENTYL10 MG PO; COLACE100 M1 PO; DELTASONE10 MG PO; FLAGYL250 MG PO; LEVAQUIN750 MG PO; NEURONTIN300 MG PO; NORCO 325 MG-7.1 TAB PO; PAXIL20 MG PO; PROTONIX40 MG PO; RISPERDAL0.25 MG PO; TEMAZEPAM15 MG PO
[2016-09-21 15:32] VITALS: BP 104/55
--- NOTE | 2016-09-21 16:32 | NUR ---
60 YO FEMALE BIB EMS FROM HOME FOR SUDDEN ONSET OF GENERAL WEAKNESS; DENIES N/V/D; SKIN IS PINK/WARM/DRY; AAOX4 WITH EVEN AND STEADY GAIT; LUNGS CLEAR BL; HR EVEN AND REGULAR; PT DENIES ANY FEVER, CP, SOB, OR COUGH AT THIS TIME; PATIENT STATES PAIN OF 4/10 AT THIS TIME; VSS; PATIENT POSITIONED FOR COMFORT; HOB ELEVATED; BEDRAILS UP X2; BED DOWN. ER MD MADE AWARE OF PT STATUS.
--- NOTE | 2016-09-21 16:47 | NUR ---
PT TAKEN OFF THE UNIT VIA GURNEY BY BISHOP JIMENEZ FOR CT OF THE ABDOMEN
[2016-09-21] MEDS ORDERED: NACL 0.9% 1,000 ML IV ONE (16:50)
--- NOTE | 2016-09-21 17:25 | NUR ---
DULCE MARIA PROVIDED FOR URINE SAMPLE, PT COOPERATIVE, TOLERATED WELL, SAMPLE SEND TO LAB
[2016-09-21] MEDS ORDERED: NACL 0.9% 500 ML IV ONE (18:30)
--- NOTE | 2016-09-21 19:09 | NUR ---
REPORT GIVEN TO JUAN ALBERTO DE ANDA FOR CONTINUATION OF CARE
--- NOTE | 2016-09-21 19:17 | NUR ---
GOT REPORT FROM JUAN ALBERTO HENRIQUEZ. PT. RESTING IN BED, NO S/SX OF DISTRESS AT THIS TME.
--- NOTE | 2016-09-21 20:20 | NUR ---
PT TAKEN TO CT
[2016-09-21] MEDS ORDERED: HYDROcodone/APAP 5/325 MG 1 TAB TAB PO PRN (20:30)
[2016-09-21] MEDS ORDERED: ONDANSETRON 4 MG/2 ML VIAL IVP PRN (20:30)
[2016-09-21] MEDS ORDERED: ACETAMINOPHEN 325 MG TAB PO PRN (20:30)
[2016-09-21] MEDS ORDERED: MORPHINE SULFATE 2 MG/ML SYR IVP PRN (20:30)
[2016-09-21] MEDS ORDERED: TEMAZEPAM 15 MG CAP PO SCH (21:00)
--- NOTE | 2016-09-21 21:16 | NUR ---
Patient will be admitted to care of [facility]. Admited to TELEMETRY. Will go to room 118. Belongings list completed. Report to JUAN ALBERTO SANTOS.
[2016-09-21 21:34] VITALS: BP 111/58
--- NOTE | 2016-09-21 21:34 | NUR ---
RECEIVED REPORT FROM ED RN FOR CONTINUITY OF CARE. 60 Y.O. FEMALE WITH DX: SYNCOPE, HYPOTENSION BROUGHT TO UNIT VIA GURNEY. SHIFT ASSESSMENT DONE, VS TAKEN, STABLE. NO S/S OF RESPIRATORY DISTRESS NOTED ON ROOM AIR. PATIENT DENIES PAIN BUT C/O ANXIETY, WILL ADMINISTER MEDICATIONS ORDERED. ORIENTED PATIENT TO ROOM. MRSA SWAB COLLECTED AND WRISTBANDS APPLIED. PT HAS REDNESS TO SACRAL AREA. PT ATE 100% OF FOOD PROVIDED, GOOD APPETITE. CALL LIGHT PLACED WITHIN REACH AND PT ENCOURAGE TO USE FOR ASSISTANCE. SAFETY/FALL PRECAUTIONS ENFORCED. BED ALARM TURNED ON. WILL CONTINUE TO MONITOR.
[2016-09-21] MEDS: DOCUSATE SODIUM 100 MG GELCAP PO SCH (22:33)
[2016-09-21] MEDS: NACL 0.9% 1,000 ML IV SCH (22:33)
--- NOTE | 2016-09-21 22:33 | NUR ---
DUE MEDICATIONS ADMINISTERED, TOLERATED WELL. PT C/O NOT RECEIVING MEDICATIONS SHE NORMALLY TAKES AT HOME. WILL FOLLOW UP WITH MD. CALL LIGHT WITHIN REACH.
[2016-09-22] VITALS: BP 102/56
--- NOTE | 2016-09-22 00:16 | NUR ---
VS TAKEN, STABLE. PT C/O HEADACHE, MEDICATED PER MD ORDER. PT UP TO USE BEDSIDE COMMODE. CALL LIGHT WITHIN REACH.
--- NOTE | 2016-09-22 00:51 | NUR ---
SPOKE WITH DR. WORLEY REGARDING ANXIETY MEDICATIONS, DR MCKEON PUT IN ORDERS WILL FOLLOW OUT GIVEN. Addendum: 09/22/16 at 0252 by Diana Irving RN ALSO INFORMED DR. WORLEY OF PT LOW HR, AWARE.
[2016-09-22] MEDS ORDERED: risperiDONE 1 MG TAB PO SCH ×2 (01:00→09:00)
--- NOTE | 2016-09-22 01:52 | NUR ---
PT IS SLEEPING. NO S/S OF DISTRESS OR DISCOMFORT NOTED. WILL CONTINUE TO MONITOR.
--- NOTE | 2016-09-22 03:58 | NUR ---
VS TAKEN, STABLE. PT IS SLEEPING. NO S/S OF DISTRESS NOTED. CALL LIGHT IN REACH.
[2016-09-22 04:00] VITALS: BP 99/49
--- NOTE | 2016-09-22 06:12 | NUR ---
PT IS AWAKE TALKING ON THE PHONE. NO S/S OF DISTRESS OR DISCOMFORT NOTED.
--- NOTE | 2016-09-22 07:12 | NUR ---
ENDORSED PATIENT TO DAY CHRISTA RN FOR CONTINUITY OF CARE, PATIENT IS IN STABLE CONDITION.
--- NOTE | 2016-09-22 07:30 | NUR ---
RECEIVED PT FROM TOM AVENDANO. PT AWAKE,ALERT AND ORIENTED. ON ROOM AIR ,NO S/S OF RESPIRATORY DISTRESS NOTED. IV TO RIGHT AC #22, SITE INTACT AND PATENT. ABDOMEN SOFT, PT CAN MOVE ALL HER EXTREMITIES. CALL LIGHT IN REACH, HOB ELEVATED 30 DEGREES WITH LOW BED POSITION. POC DISCUSSED WITH PT, PT VERBALIZED UNDERSTANDING. WILL CONTINUE TO MONITOR.
[2016-09-22] MEDS: NACL 0.9% 1,000 ML IV SCH (07:34)
[2016-09-22 08:00] VITALS: BP 108/47
--- NOTE | 2016-09-22 08:03 | NUR ---
PATIENT HAS BEEN SCREENED AND CATEGORIZED MODERATE NUTRITION RISK. PATIENT WILL BE SEEN WITHIN 3-5 DAYS OF ADMISSION. 09/24/16-09/26/[address]
[2016-09-22] MEDS: DOCUSATE SODIUM 100 MG GELCAP PO SCH (08:34)
[2016-09-22] MEDS: ASPIRIN 81 MG TAB.CHEW PO SCH ×2 (08:35→08:45)
--- NOTE | 2016-09-22 08:45 | NUR ---
PT COMPLAINS ANXIETY, NOTIFIED DOCTOR, WILL FOLLOW UP.
[2016-09-22] MEDS ORDERED: LORazepam 1 MG TAB PO PRN (08:50)
[2016-09-22] MEDS ORDERED: GABAPENTIN 300 MG CAP PO SCH (09:00)
[2016-09-22] MEDS ORDERED: PARoxetine 20 MG TAB PO SCH (09:00)
[2016-09-22] MEDS ORDERED: predniSONE 10 MG TAB PO SCH (09:00)
[2016-09-22] MEDS ORDERED: PANTOPRAZOLE 40 MG TABEC PO SCH ×2 (09:00)
[2016-09-22] MEDS ORDERED: RISPERIDONE 0.25 MG PO SCH (09:00)
--- NOTE | 2016-09-22 10:18 | NUR ---
PT COMPLAINED OF ANXIETY, ATIVAN GIVEN ORDERED. WILL CONTINUE TO ORDER.
--- NOTE | 2016-09-22 11:15 | NUR ---
PT STATES ANXIETY BETTER, NO S/S OF RESPIRATORY DISTRESS NOTED, WILL CONTINUE TO MONITOR.
[2016-09-22 12:00] VITALS: BP 124/55
--- NOTE | 2016-09-22 14:00 | NUR ---
PT RESTING IN BED. NO SOB.
[2016-09-22 16:00] VITALS: BP 115/58
--- NOTE | 2016-09-22 16:15 | NUR ---
PT STATES SHE HAS DIZZINESS, BP CHECKED 115/58. NO FEVER. NOTIFIED . WILL FOLLOW UP.
[2016-09-22] MEDS ORDERED: MECLIZINE 25 MG TAB PO SCH (16:33)
[2016-09-22] MEDS ORDERED: KLONOPIN0.5 MG PO (16:47)
--- NOTE | 2016-09-22 16:55 | NUR ---
PT'S AND CAREGIVER AT BEDSIDE, RECHECKED BP 105/50, HR 72, O2 SAT 96%.
[2016-09-22] MEDS ORDERED: ATIVAN0.5 MG PO (17:00)
[2016-09-22] MEDS ORDERED: MECLIZINE25 M2 PO (17:01)
--- NOTE | 2016-09-22 17:20 | NUR ---
PT VERBALIZED DIZZINESS GETTING BETTER.
--- NOTE | 2016-09-22 18:00 | NUR ---
PT AWAKE, ALERT, AND ORIENTED. NO S/S OF RESPIRATORY DISTRESS NOTED. DENIES PAIN OR DISCOMFORT AT THIS TIME.PT DISCHARGED VIA WHEELCHAIR, ACCOMPANIED BY AND EMBOSSING TOOL SETTER, DISCHARGE INSTRUCTION GIVEN. ALL THE PERSONAL BELONGINGS WITH PT. PRESCRIPTION GIVEN. PT VERBALIZED UNDERSTANDING. PT IN STABLE CONDITION AT THIS TIME.
== END 2016-09-22 18:00 | disposition home or self-care (01) ==
LOC: MED 15:25 → MTU 20:53 → INTOOBSV 20:53
PROVIDERS: ADMIT Family Medicine; ATTEND Family Medicine
DX: I95.2 Hypotension due to drugs (principal); R53.1 Weakness; M06.9 Rheumatoid arthritis, unspecified; F31.9 Bipolar disorder, unspecified; E43 Unspecified severe protein-calorie malnutrition
CPT/HCPCS: 36415; 70450; 71010; 74176; 80053; 80061; 80305; 81001; 82150; 83036; 83605; 83690; 83880; 84436; 84439; 84443; 84479; 85025; 85610; 85730; 87081; 93005; 93880; 96360; 96361; 99291; G0378; J7030; J7512; J8597; Q0092

== ENCOUNTER 2017-03-05 17:34 | Emergency (ER) | payer OTHER, MEDICAID ==
[~2017-03-05] VITALS: Ht 157.5 cm; Wt 49.0 kg
[~2017-03-05 17:34] MED LIST changes: +ACET-2863 PO; +ATI.5 PO; +BEN10 PO; -BENTYL10 MG PO; -COLACE100 M1 PO; -DELTASONE10 MG PO; +DOCU-67 PO; -FLAGYL250 MG PO; +GABA300C PO; -LEVAQUIN750 MG PO; +MECL-272 PO; -NEURONTIN300 MG PO; -NORCO 325 MG-7.1 TAB PO; +PANT40EC PO; +PAX20 PO; -PAXIL20 MG PO; +PRED10TA5 PO; -PROTONIX40 MG PO; +RISP0.251 PO; -RISPERDAL0.25 MG PO; +TEMA15CA11 PO; -TEMAZEPAM15 MG PO
[2017-03-05 17:41] VITALS: BP 115/61
[2017-03-05] MEDS ORDERED: LORazepam 1 MG TAB PO ONE (17:55)
[2017-03-05] MEDS ORDERED: LORazepam 2 MG/ML VIAL IM/IVP ONE (18:20)
[2017-03-05 18:58] VITALS: BP 126/72
== END 2017-03-05 18:57 | disposition home or self-care (01) ==
LOC: MED 17:34
DX: F41.9 Anxiety disorder, unspecified (principal); Z88.2 Allergy status to sulfonamides; Z88.8 Allergy status to other drugs, medicaments and biological substances; Z86.73 Personal history of transient ischemic attack (TIA), and cerebral infarction without residual deficits; Z79.899 Other long term (current) drug therapy
CPT/HCPCS: 96372; 99284; J2060

== ENCOUNTER 2017-03-19 15:42 | Inpatient (IN) | payer OTHER, MEDICAID ==
[~2017-03-19] VITALS: Ht 157.5 cm; Wt 54.4 kg
[~2017-03-19 15:42] MED LIST changes: +DOCU-299 PO; -DOCU-67 PO
--- NOTE | 2017-03-19 15:42 | NUR ---
Patient BIBA ACLS, triaged by RN. Waiting for an available bed.
[2017-03-19 15:45] VITALS: BP 112/58
--- NOTE | 2017-03-19 15:55 | NUR ---
Dr. Villafuerte evaluating patient in the hallway while still on the ambulance gurney.
[2017-03-19] MEDS ORDERED: NACL 0.9% 1,000 ML IV ONE (16:00)
--- NOTE | 2017-03-19 16:17 | NUR ---
Patient BIBA ACLS, transferred to bed 5. RN evaluating patient at bedside.
[2017-03-19 16:35] LABS: BASOPHILS # (AUTO) 0.1 K/uL (0.00-0.22); BASOPHILS % (AUTO) 1.8 % (0.0-2.0); EOSINOPHILS % (AUTO) 0.5 % (0.0-4.0); HEMATOCRIT 43.3 % (36-48); HEMOGLOBIN 14.4 g/dL (12.0-16.0); LYMPHOCYTES # (AUTO) 0.6 K/uL (2.5-16.5); MEAN CORPUSCULAR HEMOGLOBIN 31 pg (27-31); MEAN CORPUSCULAR HGB CONC 33 g/dL (33-37); MEAN CORPUSCULAR VOLUME 92 fL (80-94); MONOCYTES # (AUTO) 0.2 K/uL (0.8-1.0); NEUTROPHILS # (AUTO) 3.5 K/uL (1.8-7.7); NEUTROPHILS % (AUTO) 80.7 % (42.2-75.2); PLATELET COUNT (AUTO) 166 K/uL (140-450); RED CELL DISTRIBUTION WIDTH 12.1 % (11.6-13.7); WHITE BLOOD COUNT (AUTO) 4.4 K/uL (4.8-10.8)
--- NOTE | 2017-03-19 16:39 | NUR ---
PT TAKEN OFF THE UNIT FOR CT BY BISHOP KHAN
--- NOTE | 2017-03-19 16:41 | NUR ---
PATIENT PRESENTS TO ED PER PATIENT ,FELT DIZZY AND FELL BACKWARDS/SYNCOPAL.HEMATOMA BACK OF HEAD.ERMD AWARE.BS FIELD 103.WITNESSED BY TOY MECHANIC. NO VOMITING. FROM [facility]. HX: ANXIETY,IBS,HTN,ARTHRITIS; DENIES N/V/D; SKIN IS PINK/WARM/DRY; AAOX4; LUNGS CLEAR BL; HR EVEN AND REGULAR; PT DENIES ANY FEVER, CP, SOB, OR COUGH AT THIS TIME; PATIENT STATES PAIN OF 7/10 AT THIS TIME; VSS; PATIENT POSITIONED FOR COMFORT; HOB ELEVATED; BEDRAILS UP X2; BED DOWN. ER MD MADE AWARE OF PT STATUS.
[2017-03-19 16:51] LABS: ANION GAP 11.2 (8-16); CARBON DIOXIDE 27.6 mmol/L (21-32); CREATININE 0.9 mg/dL (0.6-1.3); POTASSIUM 4.8 mmol/L (3.5-5.1)
[2017-03-19 16:54] LABS: PROTHROMBIN TIME 10.4 secs (10.8-13.4)
[2017-03-19 16:57] LABS: ALBUMIN 3.4 g/dL (3.4-5.0); TOTAL BILIRUBIN 0.3 mg/dL (0.0-1.0)
--- NOTE | 2017-03-19 17:04 | NUR ---
Dr. Villafuerte evaluating patient at bedside.
[2017-03-19] MEDS ORDERED: KETOROLAC 30 MG/ML VIAL IVP ONE (17:35)
[2017-03-19] MEDS ORDERED: ONDANSETRON 4 MG/2 ML VIAL IVP ONE (17:35)
[2017-03-19] MEDS ORDERED: MORPHINE SULFATE 2 MG/ML SYR IVP PRN (18:40)
[2017-03-19] MEDS ORDERED: HYDROcodone/APAP 7.5/325 MG 1 TAB PO PRN (18:40)
[2017-03-19] MEDS ORDERED: DOCUSATE SODIUM 100 MG GELCAP PO PRN (18:40)
[2017-03-19] MEDS ORDERED: ONDANSETRON 4 MG/2 ML VIAL IM/IVP PRN (18:40)
[2017-03-19] MEDS ORDERED: ACETAMINOPHEN 325 MG TAB PO PRN (18:40)
--- NOTE | 2017-03-19 19:05 | NUR ---
RN NOT READY FOR REPORT AT THIS TIME
[2017-03-19] MEDS ORDERED: MECLIZINE 25 MG TAB PO SCH (19:20)
--- NOTE | 2017-03-19 19:26 | NUR ---
Patient will be admitted to care of DR CARTER. Admited to TELE. Will go to [id number]. Belongings list completed. Report to JUAN ALBERTO MARS.
[2017-03-19 19:27] LABS: CHOL/HDL RATIO 3.2 (1-4.5); FREE T4 (FREE THYROXINE) 1.21 ng/dL (0.76-1.46); MAGNESIUM 1.9 mg/dL (1.8-2.4); PHOSPHORUS 4.3 mg/dL (2.5-4.9); THYROID STIMULATING HORMONE 2.1 uIU/mL (0.34-3.74)
[2017-03-19 19:50] VITALS: BP 113/50
--- NOTE | 2017-03-19 20:00 | NUR ---
PATIENT ADMITTED TO THE UNIT FROM ED VIA GURNEY, PATIENT TRANSFERRED TO BED. PATIENT IS AAOX4 ON ROOM AIR, NO SOB OR SIGN OF DISTRESS. PUPILS EQUAL AND REACTIVE. IV TO LEFT WRIST PATENT AND INTACT, SKIN INTACT. ORIENTED PATIENT TO ROOM AND CALL LIGHT, CONNECTED TO TELE MONITOR. PATIENT DENIES PAIN AT THIS TIME, STATES SHE FEELS SLIGHTLY DIZZY. FALL RISK PROTOCOL IN PLACE, BED IN LOW POSITION, BED ALARM ON. CALL LIGHT WITHIN REACH. WILL CONTINUE TO MONITOR.
[2017-03-19] MEDS: DICYCLOMINE 10 MG CAP PO SCH (21:14)
[2017-03-19] MEDS: NACL 0.9% 1,000 ML IV SCH (21:15)
--- NOTE | 2017-03-19 21:30 | NUR ---
PM MEDS ADMINISTERED, PATIENT TOLERATED WELL.CALL LIGHT WITHIN REACH. WILL CONTINUE TO MONITOR
[2017-03-19] MEDS ORDERED: diphenhydrAMINE 50 MG/ML VIAL IVP SCH (21:50)
--- NOTE | 2017-03-19 22:30 | NUR ---
PATIENT RESTING, NO DISTRESS, CALL LIGHT WITHIN REACH. WILL CONTINUE TO MONITOR
[2017-03-20] VITALS (10 sets, daily range): BP systolic 92–117; BP diastolic 39–85
--- NOTE | 2017-03-20 00:35 | NUR ---
PATIENT SLEEPING, EASILY AWOKEN, VITAL SIGNS STABLE, NO DISTRESS, CALL LIGHT WITHIN REACH. WILL CONTINUE TO MONITOR
--- NOTE | 2017-03-20 02:30 | NUR ---
PATIENT SLEEPING, NO SIGN OF DISTRESS, CALL LIGHT WITHIN REACH. WILL CONTINUE TO MONITOR
--- NOTE | 2017-03-20 04:25 | NUR ---
VITAL SIGNS STABLE, NO DISTRESS, CALL LIGHT WITHIN REACH. WILL CONTINUE TO MONITOR
[2017-03-20 06:20] LABS: BASOPHILS # (AUTO) 0.2 K/uL (0.00-0.22); BASOPHILS % (AUTO) 3.4 % (0.0-2.0); EOSINOPHILS # (AUTO) 0.1 K/uL (0-0.4); EOSINOPHILS % (AUTO) 1.1 % (0.0-4.0); HEMATOCRIT 40.3 % (36-48); HEMOGLOBIN 13.1 g/dL (12.0-16.0); LYMPHOCYTES # (AUTO) 1.9 K/uL (2.5-16.5); LYMPHOCYTES % (AUTO) 33.4 % (20.5-51.1); MEAN CORPUSCULAR HEMOGLOBIN 30 pg (27-31); MEAN CORPUSCULAR HGB CONC 33 g/dL (33-37); MEAN CORPUSCULAR VOLUME 92 fL (80-94); MONOCYTES # (AUTO) 0.5 K/uL (0.8-1.0); MONOCYTES % (AUTO) 8.3 % (1.7-9.3); NEUTROPHILS % (AUTO) 53.8 % (42.2-75.2); PLATELET COUNT (AUTO) 149 K/uL (140-450); RED BLOOD CELL COUNT(AUTO) 4.36 MIL/uL (4.20-5.40); RED CELL DISTRIBUTION WIDTH 11.9 % (11.6-13.7)
[2017-03-20 06:45] LABS: ANION GAP 10.6 (8-16); CARBON DIOXIDE 26.7 mmol/L (21-32); CREATININE 0.8 mg/dL (0.6-1.3); POTASSIUM 4.3 mmol/L (3.5-5.1)
[2017-03-20 06:52] LABS: WHITE BLOOD COUNT (AUTO) 5.7 K/uL (4.8-10.8)
--- NOTE | 2017-03-20 07:30 | NUR ---
RECEIVED ON BED AAOX4. NO SOB NOTED. NO C/O PAIN AT THIS TIME. IV TO LT WRIST PATENT AND INTACT. CHEST, DIMINISHED AIR ENTRY TO THE BASES. ABDOMEN SOFT, BOWEL SOUNDS PRESENT. WITH CONTRACTIONS ON ALL FINGERS AND TOES. NO EDEMA NOTED. INSTRUCTED PT TO CALL FOR ASSISTANCE, CALL LIGHT WITHIN REACH, PT VERBALIZED UNDERSTANDING.
--- NOTE | 2017-03-20 07:32 | NUR ---
ENDORSED PATIENT TO DAY RN AT BEDSIDE, PATIENT IN STABLE CONDITION
--- NOTE | 2017-03-20 08:46 | NUR ---
PATIENT HAS BEEN SCREENED AND CATEGORIZED MODERATE NUTRITION RISK. PATIENT WILL BE SEEN WITHIN 3-5 DAYS OF ADMISSION. 03/22/17-03/24/[address]
[2017-03-20] MEDS ORDERED: RISPERIDONE 0.25 MG PO SCH (09:00)
[2017-03-20] MEDS: NACL 0.9% 1,000 ML IV SCH (09:35)
[2017-03-20] MEDS: DICYCLOMINE 10 MG CAP PO SCH ×2 (09:35→20:58)
[2017-03-20] MEDS: GABAPENTIN 300 MG CAP PO SCH (09:35)
[2017-03-20] MEDS: risperiDONE 1 MG TAB PO SCH (09:36)
[2017-03-20] MEDS: predniSONE 10 MG TAB PO SCH (09:36)
[2017-03-20] MEDS: SENNA 8.6 MG TAB PO SCH (09:36)
[2017-03-20] MEDS: PANTOPRAZOLE 40 MG TABEC PO SCH (09:36)
[2017-03-20] MEDS: PARoxetine 20 MG TAB PO SCH (09:36)
[2017-03-20] MEDS: MECLIZINE 25 MG TAB PO PRN ×2 (09:37→22:00)
--- NOTE | 2017-03-20 09:37 | NUR ---
PT C/O BEING DIZZY, MEDICATED WITH MECLIZINE PRN. WILL CONTINUE TO MONITOR PT.
--- NOTE | 2017-03-20 10:55 | NUR ---
PHYSICAL THERAPY ON GOING AT THE BEDSIDE.
[2017-03-20] MEDS ORDERED: MECLIZINE 25 MG TAB PO PRN (11:10)
[2017-03-20] MEDS ORDERED: MAGNESIUM HYDROXIDE 2400 MG/30 ML UDC PO SCH (11:11)
--- NOTE | 2017-03-20 11:31 | NUR ---
CM NOTE INITIAL REVIEW FAXED TO [facility] [phone] THO BOO # [phone]
--- NOTE | 2017-03-20 16:00 | NUR ---
PT RESTING. NO SOB NOTED, NO SIGNS OF PAIN AT THIS TIME.
--- NOTE | 2017-03-20 18:59 | NUR ---
PT RESTING. NO SOB NOTED. NO COMPLAINTS MADE. LAB CALLED FOR UNCOLLECTED URINE SAMPLE ORDERED IN ED. WILL ENDORSE TO NEXT SHIFT NURSE FOR CONTINUITY OF CARE.
--- NOTE | 2017-03-20 19:05 | NUR ---
RECEIVED REPORT FROM AM SHIFT NURSE. PT IS AOX4, ABLE TO MAKE NEEDS KNOWN. WITH RESPIRATIONS CLEAR AND UNLABORED. NO COMPLAINTS OF PAIN AT THIS TIME. WITH AN IV TO THE LEFT WRIST, INTACT AND PATENT. SKIN INTACT. NOTED WITH CONTRACTIONS ON HANDS AND TOES. RE-ORIENTED PT TO THE UNIT, VERBALIZED UNDERSTANDING. WILL CONTINUE TO MONITOR. ALL NEEDS ATTENDED. CALL LIGHT WITHIN REACH. SAFETY CHECKS IN PLACE.
--- NOTE | 2017-03-20 20:38 | NUR ---
CALLED MANAGER OF INTERNAL IN REGARDS TO PT'S MEDICATION OF DICYCLOMINE SINCE THERE WAS NO STOCK IN THE TELE MED ROOM. SHE CHECKED ER AND TELE MED ROOM TO VERIFY. CALLED PHARMACY AND SAID THAT ITS ONLY AVAILABLE IN THE MAIN PHARMACY AND IN THE TELE MED ROOM. WILL ASK IN REGARDS TO THAT MEDICATION.
--- NOTE | 2017-03-20 20:39 | NUR ---
TALKED TO DR. BRAR IN REGARDS TO DICYCLOMINE. SAID HE WILL FOLLOW UP WITH ANOTHER OPTION TO THE MEDICATION. SAID TO ASK HIM IN A FEW MINUTES.
--- NOTE | 2017-03-20 20:58 | NUR ---
TALKED TO DR. BRAR TO FOLLOW UP IN REGARDS TO MEDICATION. SAID JUST TO HOLD THE MEDICATION JUST FOR THE NIGHT SINCE PATIENT HAS NO EPISODE OF DIARRHEA OR VOMITING OF RIGHT NOW.
--- NOTE | 2017-03-20 21:30 | NUR ---
COLLECTED URINE FOR URINALYSIS.
[2017-03-20 23:27] LABS: APPEARANCE,URINE CLEAR (CLEAR); BILIRUBIN,URINE NEGATIVE (NEGATIVE); BLOOD, URINE TRACE-I (NEGATIVE); COLOR,URINE YELLOW (YELLOW); LEUKOCYTE ESTERASE ,URINE 1+ (NEGATIVE); NITRITE, URINE NEGATIVE (NEGATIVE); UGLUCOSE NEGATIVE (NEGATIVE)
[2017-03-21] VITALS (12 sets, daily range): BP systolic 97–122; BP diastolic 38–80
--- NOTE | 2017-03-21 00:12 | NUR ---
GAVE BENTYL 20 MG LIQUID FORM, WELL TOLERATED BY PATIENT. VITAL SIGNS STABLE. WILL CONTINUE TO MONITOR FOR ANY CHANGES.
[2017-03-21 00:25] LABS: RBC,URINE 3-10 (FEW) /HPF (0-5)
--- NOTE | 2017-03-21 01:00 | NUR ---
INFORMED DR. BRAR OF PATIENT'S HR AND RHYTHM STRIP OF SINUS TERRANCE.
[2017-03-21] MEDS: NACL 0.9% 1,000 ML IV SCH ×2 (02:11→21:13)
--- NOTE | 2017-03-21 04:00 | NUR ---
VITALS STABLE. NO S/S OF DISTRESS. NO COMPLAINTS OF PAIN. WILL CONTINUE TO MONITOR FOR ANY CHANGES.
[2017-03-21 06:04] LABS: BASOPHILS # (AUTO) 0.2 K/uL (0.00-0.22); BASOPHILS % (AUTO) 4.1 % (0.0-2.0); EOSINOPHILS % (AUTO) 1.1 % (0.0-4.0); HEMATOCRIT 37.7 % (36-48); HEMOGLOBIN 12.5 g/dL (12.0-16.0); LYMPHOCYTES # (AUTO) 1.4 K/uL (2.5-16.5); LYMPHOCYTES % (AUTO) 30.9 % (20.5-51.1); MEAN CORPUSCULAR HEMOGLOBIN 31 pg (27-31); MEAN CORPUSCULAR HGB CONC 33 g/dL (33-37); MEAN CORPUSCULAR VOLUME 93 fL (80-94); MONOCYTES # (AUTO) 0.4 K/uL (0.8-1.0); MONOCYTES % (AUTO) 7.8 % (1.7-9.3); NEUTROPHILS # (AUTO) 2.5 K/uL (1.8-7.7); NEUTROPHILS % (AUTO) 56.1 % (42.2-75.2); PLATELET COUNT (AUTO) 174 K/uL (140-450); RED BLOOD CELL COUNT(AUTO) 4.06 MIL/uL (4.20-5.40); WHITE BLOOD COUNT (AUTO) 4.5 K/uL (4.8-10.8)
[2017-03-21 07:05] LABS: ANION GAP 9.6 (8-16); CARBON DIOXIDE 24.3 mmol/L (21-32); CREATININE 0.7 mg/dL (0.6-1.3); POTASSIUM 3.9 mmol/L (3.5-5.1)
--- NOTE | 2017-03-21 07:28 | NUR ---
ENDORSED TO AM SHIFT NURSE FOR CONTINUITY OF CARE, IN STABLE CONDITION.
--- NOTE | 2017-03-21 07:30 | NUR ---
RECEIVED ON BED AAOX4. NO SOB NOTED. NO C/O PAIN AT THIS TIME. IV TO LT WRIST PATENT AND INTACT. CHEST, DIMINISHED AIR ENTRY TO THE BASES. ABDOMEN SOFT, BOWEL SOUNDS PRESENT. WITH CONTRACTIONS ON ALL FINGERS AND TOES. NO EDEMA NOTED. PROVIDED WITH BEDSIDE COMMODE. INSTRUCTED PT TO CALL FOR ASSISTANCE, CALL LIGHT WITHIN REACH. PT VERBALIZED UNDERSTANDING.
[2017-03-21] MEDS ORDERED: METOCLOPRAMIDE 10 MG/2 ML INJ VIAL IVP PRN (08:10)
[2017-03-21] MEDS ORDERED: MECLIZINE 25 MG TAB PO PRN (08:10)
[2017-03-21 08:22] LABS: T4 (THYROXINE) 7.1 ug/dL (4.5-12.0)
[2017-03-21] MEDS ORDERED: DICYCLOMINE HCL LIQUID 10 MG/5 ML UDC PO SCH ×2 (09:03)
[2017-03-21] MEDS: SENNA 8.6 MG TAB PO SCH (09:11)
[2017-03-21] MEDS: GABAPENTIN 300 MG CAP PO SCH (09:11)
[2017-03-21] MEDS: risperiDONE 1 MG TAB PO SCH (09:11)
--- NOTE | 2017-03-21 09:11 | NUR ---
FAXED CONCURRENT REVIEW TO [facility] [phone] PHONE CHERELLE [phone]
[2017-03-21] MEDS: predniSONE 10 MG TAB PO SCH (09:12)
[2017-03-21] MEDS: PARoxetine 20 MG TAB PO SCH (09:12)
[2017-03-21] MEDS: PANTOPRAZOLE 40 MG TABEC PO SCH (09:12)
--- NOTE | 2017-03-21 10:55 | NUR ---
PT AMBULATING WITH PHYSICAL THERAPY IN THE HALLWAY, ACTIVITY TOLERATED WELL.
--- NOTE | 2017-03-21 15:29 | NUR ---
PHYSICAL THERAPY CO-SIGN The Physical Therapy Progress Notes documented by Event Marketing Representative have been reviewed. Reviewed/Co-Signed by: Varsha Will PT Documentation Done by:REESE RAY SUPPLY OFFICER POC REVIEWED W/ SUPPLY OFFICER; PROGRESSING W/ GAIT ENDURANCE. Addendum: 03/21/17 at 1529 by Varsha Will PT Amended: Links added.
--- NOTE | 2017-03-21 15:56 | NUR ---
LEFT MESSAGE WITH CHERELLE AT [facility] BY [facility] TO MAKE SURE HE GOT THE HOME HEALTH ORDER. NO CALL BACK. I CALLED [employer], . SHE SAID SHE INFORMED YESTERDAY. THE HOME HEALTH RN IS TRESA RICHARDS PHONE [phone].
--- NOTE | 2017-03-21 16:10 | NUR ---
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 PT VERBALIZED UNDERSTANDING.
[2017-03-21] MEDS ORDERED: CHLORHEXADINE GLUC 2% CLOTH TP SCH (17:00)
[2017-03-21] MEDS ORDERED: MUPIROCIN 2% OINT 22 GM TUBE TP SCH (17:00)
--- NOTE | 2017-03-21 18:59 | NUR ---
PT AWAKE, WATCHING TV. NO SOB NOTED. NO SIGNS OF PAIN AT THIS TIME. WILL ENDORSE TO NEXT SHIFT NURSE FOR CONTINUITY OF CARE.
--- NOTE | 2017-03-21 19:01 | NUR ---
RECEIVED HANDOFF REPORT FROM AM RN. PATIENT AWAKE IN BED. PATIENT A&OX4. PATIENT DENIES PAIN. IV SITE PATENT AND INTACT. NO SIGNS OR SYMPTOMS OF ACUTE DISTRESS NOTED. CALL LIGHT WITHIN REACH. WILL CONTINUE TO MONITOR.
[2017-03-21] MEDS: DICYCLOMINE HCL LIQUID 10 MG/5 ML UDC PO SCH (21:13)
--- NOTE | 2017-03-21 21:18 | NUR ---
PM MEDS GIVEN WITH EDUCATION. PATIENT VERBALIZED UNDERSTANDING. PATIENT DENIES PAIN. NO SIGNS OR SYMPTOMS OF ACUTE DISTRESS NOTED. CALL LIGHT WITHIN REACH. WILL CONTINUE TO MONITOR.
[2017-03-22] VITALS: BP 103/48
--- NOTE | 2017-03-22 00:12 | NUR ---
PATIENT RESTING IN BED. PATIENT DENIES PAIN. NO SIGNS OR SYMPTOMS OF ACUTE DISTRESS NOTED. CALL LIGHT WITHIN REACH. WILL CONTINUE TO MONITOR.
--- NOTE | 2017-03-22 02:43 | NUR ---
PATIENT RESTING IN BED. NO SIGNS OR SYMPTOMS OF ACUTE DISTRESS NOTED. CALL LIGHT WITHIN REACH. WILL CONTINUE TO MONITOR.
[2017-03-22 04:00] VITALS: BP 120/46
--- NOTE | 2017-03-22 05:01 | NUR ---
PATIENT RESTING IN BED. PATIENT DENIES PAIN. NO SIGNS OR SYMPTOMS OF ACUTE DISTRESS NOTED. CALL LIGHT WITHIN REACH. WILL CONTINUE TO MONITOR.
[2017-03-22 06:08] LABS: BASOPHILS # (AUTO) 0.2 K/uL (0.00-0.22); BASOPHILS % (AUTO) 3.5 % (0.0-2.0); EOSINOPHILS % (AUTO) 0.8 % (0.0-4.0); HEMATOCRIT 38.1 % (36-48); HEMOGLOBIN 12.9 g/dL (12.0-16.0); LYMPHOCYTES # (AUTO) 1.8 K/uL (2.5-16.5); LYMPHOCYTES % (AUTO) 36.9 % (20.5-51.1); MEAN CORPUSCULAR HEMOGLOBIN 32 pg (27-31); MEAN CORPUSCULAR HGB CONC 34 g/dL (33-37); MEAN CORPUSCULAR VOLUME 93 fL (80-94); MONOCYTES # (AUTO) 0.4 K/uL (0.8-1.0); NEUTROPHILS # (AUTO) 2.6 K/uL (1.8-7.7); NEUTROPHILS % (AUTO) 50.8 % (42.2-75.2); PLATELET COUNT (AUTO) 166 K/uL (140-450); RED BLOOD CELL COUNT(AUTO) 4.09 MIL/uL (4.20-5.40); RED CELL DISTRIBUTION WIDTH 11.9 % (11.6-13.7)
[2017-03-22 06:32] LABS: ALBUMIN 2.5 g/dL (3.4-5.0); ANION GAP 12.1 (8-16); CARBON DIOXIDE 24.7 mmol/L (21-32); CREATININE 0.7 mg/dL (0.6-1.3); POTASSIUM 3.8 mmol/L (3.5-5.1); TOTAL BILIRUBIN 0.2 mg/dL (0.0-1.0)
--- NOTE | 2017-03-22 07:18 | NUR ---
ENDORSED PLAN OF CARE TO AM RN. PATIENT IN STABLE CONDITION. NO SIGNS OR SYMPTOMS OF ACUTE DISTRESS NOTED. SAFETY MEASURES ENSURED. CALL LIGHT WITHIN REACH.
--- NOTE | 2017-03-22 07:30 | NUR ---
RECEIVED ON BED AAOX4. NO S/S OF DISTRESS NOTED. NO C/O PAIN AT THIS TIME. CONTRACTIONS ON ALL FINGERS AND TOES. NO EDEMA NOTED. PT POSITIVE FOR MRSA NARES. CONTACT PRECAUTIONS IN PLACE. PT USES BEDSIDE COMMODE. INSTRUCTED PT TO CALL FOR ASSISTANCE, CALL LIGHT WITHIN REACH. PT VERBALIZED UNDERSTANDING.
[2017-03-22] MEDS ORDERED: SENNA 8.6 MG TAB PO SCH (07:50)
[2017-03-22 08:00] VITALS: BP_SYST 111; BP_SYST 116; BP_DIAS 55; BP_DIAS 64
[2017-03-22 08:30] VITALS: BP_SYST 102; BP_SYST 111; BP_SYST 121; BP_DIAS 55; BP_DIAS 62; BP_DIAS 79
[2017-03-22] MEDS: predniSONE 10 MG TAB PO SCH (08:41)
[2017-03-22] MEDS: GABAPENTIN 300 MG CAP PO SCH (08:41)
[2017-03-22] MEDS: PARoxetine 20 MG TAB PO SCH (08:41)
[2017-03-22] MEDS: PANTOPRAZOLE 40 MG TABEC PO SCH (08:41)
[2017-03-22] MEDS: DICYCLOMINE HCL LIQUID 10 MG/5 ML UDC PO SCH (08:42)
[2017-03-22] MEDS: SENNA 8.6 MG TAB PO SCH (09:00)
[2017-03-22] MEDS: risperiDONE 1 MG TAB PO SCH (09:00)
--- NOTE | 2017-03-22 09:30 | NUR ---
PT HAD A BM. STOOL IS BROWN, SOLID, AND MODERATE IN SIZE.
--- NOTE | 2017-03-22 10:12 | NUR ---
LEFT MESSAGE TO CHERELLE AVENDANO AT [facility] REGARDING HOME HEALTH ATTEMPTED TO CALL TRESA RICHARDS AT [phone] BUT NOT ABLE TO LEAVE MESSAGE.
--- NOTE | 2017-03-22 10:24 | NUR ---
SPOKE TO TRESA THE LICENSED FUNERAL DIRECTOR AT [facility] AND STATED THAT TO FAX D/C ORDER WITH PT HOME HEALTH ORDER AND TO FAX IT TO HER AT [phone], AND TO [phone] AND ALSO TO FAX PRESCRIPTION IF ANY.
[2017-03-22] MEDS ORDERED: BACTO TP (10:35)
[2017-03-22] MEDS ORDERED: CHLO118S2 TP (10:35)
[2017-03-22] MEDS ORDERED: CEPH-1019 PO (11:16)
[2017-03-22] MEDS ORDERED: LACT10CA PO (11:18)
--- NOTE | 2017-03-22 11:33 | NUR ---
order for home health PT and prescription faxed to Jess the home management supervisor at [facility] at [phone]- RN Gladys dan.
[2017-03-22 12:00] VITALS: BP_SYST 113; BP_SYST 116; BP_SYST 135; BP_DIAS 61; BP_DIAS 62
--- NOTE | 2017-03-22 13:05 | NUR ---
PT DISCHARGED TO HOME WITH ANALYTICAL MANAGER. PT VITAL SIGNS STABLE, DENIES PAIN, SHOWED NO S/S OF DISTRESS. DISCHARGE INSTRUCTIONS GIVEN. EDUCATED PT ON HER PRESCRIPTIONS. PT VERBALIZED UNDERSTANDING. IV LINE DISCONTINUED, TIP INTACT. PT LEFT WITH ALL HER BELONGINGS.
[2017-03-22] MEDS: NACL 0.9% 1,000 ML IV SCH (13:18)
== END 2017-03-22 13:15 | disposition home health service (06) | DRG 682 ==
LOC: MED 15:42 → MTU 18:43
PROVIDERS: ADMIT Family Medicine Sports Medicine; ATTEND Family Medicine Sports Medicine
DX: N17.0 Acute kidney failure with tubular necrosis (principal); E43 Unspecified severe protein-calorie malnutrition; I31.3 Pericardial effusion (noninflammatory); S09.90XA Unspecified injury of head, initial encounter; E83.51 Hypocalcemia; E87.8 Other disorders of electrolyte and fluid balance, not elsewhere classified; N39.0 Urinary tract infection, site not specified; I95.1 Orthostatic hypotension; I07.1 Rheumatic tricuspid insufficiency; G31.9 Degenerative disease of nervous system, unspecified; W18.30XA Fall on same level, unspecified, initial encounter; G62.9 Polyneuropathy, unspecified; J32.2 Chronic ethmoidal sinusitis; J32.0 Chronic maxillary sinusitis; I34.0 Nonrheumatic mitral (valve) insufficiency; M47.892 Other spondylosis, cervical region; I10 Essential (primary) hypertension; M06.9 Rheumatoid arthritis, unspecified; F17.200 Nicotine dependence, unspecified, uncomplicated; E78.5 Hyperlipidemia, unspecified; R09.81 Nasal congestion; F31.9 Bipolar disorder, unspecified; K58.1 Irritable bowel syndrome with constipation; Z88.2 Allergy status to sulfonamides; Z88.8 Allergy status to other drugs, medicaments and biological substances; Z86.73 Personal history of transient ischemic attack (TIA), and cerebral infarction without residual deficits; Y93.89 Activity, other specified; Y99.8 Other external cause status; Z93.3 Colostomy status; Z90.49 Acquired absence of other specified parts of digestive tract; Z68.21 Body mass index [BMI] 21.0-21.9, adult; Y92.000 Kitchen of unspecified non-institutional (private) residence as the place of occurrence of the external cause
CPT/HCPCS: 36415; 70450; 71010; 72125; 80048; 80053; 81001; 83036; 83735; 84100; 84436; 84439; 84443; 84479; 84484; 85025; 85610; 85730; 87081; 87086; 93005; 93880; 96361; 96374; 96375; 97110; 97116; 97530; 99285; J1200; J1885; J2405; J2765; J7030; J7512; J8597; Q0092